=== PATIENT | female | born 1985 | race Caucasian/White ===

== ENCOUNTER 2020-07-27 11:31 | Inpatient (IN) ==
[2020-07-27] MEDS ORDERED: RINGER'S SOLUTION,LACTATED 1,000 ML IV PRN (11:58)
[2020-07-27] MEDS ORDERED: CITRIC ACID/SODIUM CITRATE 60 ML BTL PO PRN (11:58)
[2020-07-27] MEDS ORDERED: BUPIVACAINE HCL 50 ML VIAL IJ ONE (14:37)
[2020-07-27] MEDS ORDERED: BUPIVACAINE HCL/EPINEPHRINE 50 ML VIAL ONE (14:42)
--- NOTE | 2020-07-27 15:42 | ANES ---
Anesthesia Pre Procedure Eval Vitals/Labs: Last Vital Signs Temp 36.9 C 07/27/20 15:28 Pulse 80 07/27/20 15:28 Resp 16 07/27/20 15:28 BP 127/65 07/27/20 15:28 Pulse Ox 97 07/27/20 15:28 HOME MEDICATIONS acetaminophen 500 mg tablet 500 mg PO Q6H PRN 03/30/20 [Last Taken Unknown] albuterol sulfate 90 mcg/actuation aerosol inhaler 2 inh IH QID PRN 03/30/20 [Last Taken Unknown] hydroxyzine HCl 25 mg tablet 25 mg PO Q4H #30 tab 03/30/20 [Last Taken Unknown] levetiracetam 500 mg tablet 500 mg PO BID 03/30/20 [Last Taken Unknown] ascorbic acid (vitamin C) 500 mg tablet 500 mg PO DAILY 05/04/20 [Last Taken Unknown] ferrous sulfate 325 mg (65 mg iron) tablet,delayed release 325 mg PO DAILY 05/04/20 [Last Taken Unknown] folic acid 1 mg tablet 1 mg PO DAILY 05/04/20 [Last Taken Unknown] calcium carbonate 500 mg calcium (1,250 mg) tablet 1,000 mg PO Q4H PRN tab 06/29/20 [Last Taken Unknown] Vits96/Iron Fum/Folic [ S] 1 tab PO DAILY 07/27/20 [Last Taken Unknown] Allergies/Adverse Reactions: Allergies Allergy/AdvReac Type Severity Reaction Status Date / Time Penicillins Allergy Unknown Verified 07/20/20 10:10 promethazine [From Phenergan] AdvReac Intermediate Verified 07/20/20 10:10 - Planned Procedure Planned Procedure: Section with posible abdominal scar malcolm Medication List Reviewed:: Yes Allergies Verified: Yes Medical History (Last Reviewed 07/27/20 @ 15:39 by Jackson Zarate CRNA) Obesity, morbid, BMI 40.0-49.9 (Chronic) Oligohydramnios (Acute) 4.12cm on 07/27/20. Anxiety (Chronic) ADHD (attention deficit hyperactivity disorder) (Chronic) No meds Advanced maternal age (AMA) in (Chronic) Asthma (Chronic) Bipolar disorder with depression (Chronic) No meds since Late care (Acute) 21 weeks Seizure disorder (Chronic) Last dec. Current smoker (Resolved) Tetrahydrocannabinol (THC) use disorder, mild, abuse (Resolved) Anemia Onset Date: ~03/30/20 ADHD Onset Date: Unknown dx as a child Anxiety Onset Date: Unknown dx a a teen Asthma Onset Date: Unknown dx as a child Bipolar affect, depressed Onset Date: ~04/28/09 Seizures Onset Date: ~04/28/16 Anemia affecting Onset Date: ~2005 Polyhydramnios Onset Date: ~2006 Surgical History (Last Reviewed 07/27/20 @ 15:39 by Jackson Zarate CRNA) Previous section (Chronic) 2006 [facility] H/O section Onset Date: ~01/30/07 H/O myringotomy Onset Date: Unknown as a child Hx of tonsillectomy Onset Date: Unknown as a child Family History (Last Reviewed 07/27/20 @ 15:40 by Jackson Zarate CRNA) Mother Cancer cervical Acute Crohn's disease Bipolar disorder Hepatitis C Father COPD (chronic obstructive pulmonary disease) - Family Anesthesia History Family History:: no untoward family reactions to anesthesia, no familial bleeding tendencies, no family history of clotting disorders, no family history of premature - Airway/Neck/Teeth Within Normal Limits:: Yes Teeth Condition: missing - a few Neck Exam: full range of motion Mallampatti Score: 2 Thyromental (T-M) distance: > 6 cm Mandibulo Hyoid distance: > 3 cm - Respiratory Respiratory History: asthma Respiratory Physical: lungs clear Sleep Apnea currently treated: No Sleep Apnea by current assessment: No - Cardiovascular Tolerate Activity: Fair Heart Sounds: S1 & S2, Regular - Gastrointestinal NPO since: 0800 food, 1000 cream soda - Anesthesia Assessment and Plan ASA Class: PS, III Anesthesia Type Plan: Block - Bilateral TAP block for post op pain relief, Spinal
[2020-07-27] MEDS ORDERED: ceFAZolin SODIUM 1 GM VIAL ONE (16:25)
[2020-07-27] MEDS ORDERED: Oxytocin/Ringers Lactate 20 UNITS/1,000 ML BAG IV ONE (17:21)
[2020-07-27] MEDS ORDERED: ONDANSETRON HCL/PF 2 MG/ML VIAL IV PRN (18:28)
[2020-07-27] MEDS ORDERED: SENNOSIDES 8.6 MG TABLET PO PRN (18:28)
[2020-07-27] MEDS ORDERED: BISACODYL 10 MG SUPP.RECT RC PRN (18:28)
[2020-07-27] MEDS ORDERED: SIMETHICONE 80 MG TAB.CHEW PO PRN (18:28)
[2020-07-27] MEDS ORDERED: HYDROcodone/ACETAMINOPHEN 1 EACH TABLET PO PRN (18:28)
--- NOTE | 2020-07-27 18:42 | OR ---
Operative Report - Dictated Report Narrative: Indication: 35-year-old 4 para 1-0-2-1 admitted at 38 weeks for repeat low transverse section due to oligohydramnios. status: Planned Pre Operative Diagnosis: 38-week intrauterine . Prior section. Advanced maternal age. Oligohydramnios. Late care. Morbid obesity. Marijuana use in first trimester. Smoker. Post Operative Diagnosis: Same. Procedure: Repeat low transverse section. Surgeon: Tyler Jay DO Insurance And Benefits Clerk: OR Staff Anesthesia: Spinal, TAP block Estimated Blood Loss: 600 mL Urine Output: 100 mL clear urine Fluids Replacement: 1100 mL of crystalloid Drains: Fletcher to gravity Surgical Complications: None Specimens: Placenta to pathology Findings: Female born at 1712 on 07/27/2020 with Apgars 9 and 9, weighing 3416 g in cephalic presentation. Omental adhesions to anterior uterine fundus and inferior surface of left anterior abdominal wall. Rectus diathesis. Normal uterus, tubes, ovaries Technique: The patient was taken to the operating room and placed in dorsal supine position with a left lateral tilt. After adequate spinal anesthesia, fletcher catheter inserted, SCDs placed, and 2 g of Ancef given preoperatively, the abdominal cavity was entered using sharp and blunt dissection. Two rolled laps were placed in the pericolic gutters on either side of the uterus. A transverse incision was made in the lower uterine segment and extended laterally and upward ly with digital traction. Clear fluid was noted upon amniotomy. The was delivered easily, warmed and dried. After approximately 45 seconds, the cord was clamped and cut and was handed off to awaiting digital composer. The placenta was allowed to deliver spontaneously. The uterus was cleared of clot and debris. Uterine incision was closed with 0 Vicryl using a running stitch. A second imbricating layer was placed. Excellent hemostasis was noted. The rolled laps were removed from the abdominal cavitiy. Omental adhesions to the uterine serosa and peritoneal surface of the inferior anterior abdominal wall were excised using cut cautery. A small piece of Surgicel was placed over the serosa of the anterior uterine wall where adhesions were removed in an attempt to prevent further reattachment of adhesions. The peritoneum was closed with a running 3-0 Monocryl. The same suture was used to approximate the rectus and pyramidalis muscles. Using 0 Vicryl, a [id number]-lk-qbuad stitch was placed in the fascia of the rectus muscle just below the umbilicus to correct a partial rectus diathesis. The fascia of the rectus abdominis muscle was closed with a running 0 Vicryl. The subcutaneous layer was closed with a running 3-0 Monocryl. The same suture was used to approximate the subdermal layer. The skin was closed with a running 4-0 Monocryl and Dermabond. Sponge, lap, needle, and instrument count were correct x 2. Disposition: To post anesthesia care unit in good condition History for MU History for MU Definition: * The number of deliveries resulting in a live the patient experienced prior to current hospitalization * The previous delivery of live twins or any live multiple gestation is considered one live event. *If primagravida or nulliparous is documented select zero for the number of previous live births. Live Events: Live Events: 1
--- NOTE | 2020-07-27 18:45 | ANES ---
Post Anesthesia Discharge - Transfer of Care Transfer of Care handoff given to nurse: Yes - Discharge from PACU Discharge from PACU when meets criteria: Yes - Awake and comfortable
--- NOTE | 2020-07-27 18:48 | ANES ---
Anesthesia Procedure Note Procedure Note: ANESTHESIA PROCEDURE NOTE Date of Procedure: 07/27/2020 Time of procedure: 1830. Performed by: HECTOR Yost CRNA, MSN Tapper Supervisor: Lauren Garcia RN. Preprocedure diagnosis: Post section pain. Post procedure diagnosis: Same. Procedure: Bilateral TAP block Indications: Post section pain relief. Findings: See below. Details of the procedure: The patient was brought to PACU and placed in the supine position. The patient was prepped with chlorhexidine and using u ltrasound guidance the 3 abdominal muscular planes were identified and lidocaine 1% was infiltrated to the skin of the intended injection site. Under ultrasound guidance the the internal oblique and transverse this abdominis muscle layers were approached with visualization of a 4 inch block needle until the tip of the needle rested in the plane between the muscles. 25 mL bupivacaine 0.5% with 1-200,000 epinephrine was injected and the procedure was repeated on the other side. Please see radiology/ultrasound report for details and images of the procedure. EBL: 0 Fluids: N/A. Specimen: N/A. Post procedure condition: The patient tolerated the procedure well. No complications were noted. Thank you for this consultation. Jackson Zarate CRNA, ARNP, MSN
[2020-07-27] MEDS: IBUPROFEN 800 MG TABLET PO PRN (19:22)
[2020-07-27] MEDS: oxyCODONE HCL/ACETAMINOPHEN 1 TAB TABLET PO PRN (19:23)
[2020-07-27 20:20] LABS: Cocaine Ur Negative (NEGATIVE); Urine Barbiturate Negative (NEGATIVE); Urine Benzodiazepines Negative (NEGATIVE); Urine Opiates Negative (NEGATIVE); Urine PCP Negative (NEGATIVE); Urine THC Negative (NEGATIVE)
[2020-07-27] MEDS: DOCUSATE SODIUM 100 MG CAPSULE PO SCH (21:17)
[2020-07-28] MEDS: oxyCODONE HCL/ACETAMINOPHEN 1 TAB TABLET PO PRN ×6 (01:49→23:43)
[2020-07-28] MEDS: IBUPROFEN 800 MG TABLET PO PRN ×3 (02:32→15:57)
[2020-07-28] MEDS: ENOXAPARIN SODIUM 40 MG/0.4 ML SYRG SC SCH (05:13)
[2020-07-28] MEDS ORDERED: ceFAZolin SODIUM 1 GM VIAL IV PRN (06:00)
--- NOTE | 2020-07-28 08:25 | ANES ---
Post Anesthesia Assessment - Vital Signs Vitals: Last Vital Signs Temp 36.4 C 07/27/20 18:50 Pulse 95 07/28/20 02:35 Resp 16 07/28/20 02:35 BP 108/56 07/28/20 02:35 Pulse Ox 96 07/28/20 02:35 Airway Patency: Normal - Mental Status Level Of Consciousness: Awake, Alert, Appropriate - Pain Level Pain Score: 8 - Comfortable through night but increasing this am. - N/V Assessment Nausea/Vomiting Presence: None Dehydration:: No
[2020-07-28] MEDS: DOCUSATE SODIUM 100 MG CAPSULE PO SCH ×2 (09:58→20:27)
--- NOTE | 2020-07-28 14:57 | PN ---
Subjective - Date and Time Seen Date: 07/28/20 Time: 14:57 Objective - Vitals Vitals: Last Vital Signs Temp 36.2 C 07/28/20 09:00 Pulse 88 07/28/20 09:00 Resp 16 07/28/20 09:00 BP 105/58 07/28/20 09:00 Pulse Ox 97 07/28/20 09:00 Patient denies complaints. Tolerating regular diet. Ambulating without difficulty. Pain well controlled. Lochia wnl. Abdomen - soft, appropriately tender Incision -clean, dry, intact uterus - firm, at umbilicus -1 No calf tenderness Impression: Post op day #1 s/p repeat section. Plan: Continue routine post-operative/ care Cauti Physician Documentation - Urinary Catheter Management Urethral (Castillo) Date of Insertion: 07/27/20 Time of Insertion: 16:55
[2020-07-28] MEDS ORDERED: hydrOXYzine HCL 25 MG TABLET PO PRN (15:12)
[2020-07-28] MEDS ORDERED: ALBUTEROL SULFATE 2.5 MG/0.5 ML VIAL.NEB IH PRN (15:12)
[2020-07-28] MEDS ORDERED: CALCIUM CARBONATE 500 MG TAB.CHEW PO PRN (15:12)
[2020-07-28] MEDS: FERROUS SULFATE 325 MG TABLET PO SCH (20:27)
[2020-07-28] MEDS: levETIRAcetam 500 MG TABLET PO SCH (20:28)
[2020-07-29] MEDS: IBUPROFEN 800 MG TABLET PO PRN ×3 (02:46→19:07)
[2020-07-29] MEDS: ENOXAPARIN SODIUM 40 MG/0.4 ML SYRG SC SCH (04:39)
[2020-07-29] MEDS: oxyCODONE HCL/ACETAMINOPHEN 1 TAB TABLET PO PRN ×3 (04:39→19:06)
--- NOTE | 2020-07-29 09:36 | PN ---
Subjective - Date and Time Seen Date: 07/29/20 Time: 09:28 Objective - Vitals Vitals: Last Vital Signs Temp 36.3 C 07/29/20 07:00 Pulse 68 07/29/20 07:00 Resp 18 07/29/20 07:00 BP 109/54 07/29/20 07:00 Pulse Ox 97 07/29/20 07:00 Patient denies complaints. Ambulating well. Tolerating regular diet. Pain well controlled. Rest feeding well. Lochia wnl. Abdomen - soft, appropriately tender Incision -clean, dry, intact uterus - firm, at umbilicus -2 No calf tenderness Impression: Post op day #2 s/p repeat section. Plan: Continue routine post-operative/ care Cauti Physician Documentation - Urinary Catheter Management Urethral (Castillo) Date of Insertion: 07/27/20 Time of Insertion: 16:55
[2020-07-29] MEDS: FERROUS SULFATE 325 MG TABLET PO SCH ×2 (09:39→20:57)
[2020-07-29] MEDS: PRENATAL VITS96/IRON FUM/FOLIC 1 TAB TABLET PO SCH (09:40)
[2020-07-29] MEDS: ASCORBIC ACID 500 MG TABLET PO SCH (09:40)
[2020-07-29] MEDS: DOCUSATE SODIUM 100 MG CAPSULE PO SCH ×2 (09:40→20:58)
[2020-07-29] MEDS: levETIRAcetam 500 MG TABLET PO SCH ×2 (09:42→20:58)
[2020-07-30] MEDS: oxyCODONE HCL/ACETAMINOPHEN 1 TAB TABLET PO PRN (01:10)
[2020-07-30] MEDS: IBUPROFEN 800 MG TABLET PO PRN ×2 (01:10→10:29)
[2020-07-30] MEDS: ENOXAPARIN SODIUM 40 MG/0.4 ML SYRG SC SCH (04:30)
[2020-07-30 07:25] VITALS: BP 120/71
[2020-07-30] MEDS: PRENATAL VITS96/IRON FUM/FOLIC 1 TAB TABLET PO SCH (10:29)
[2020-07-30] MEDS: levETIRAcetam 500 MG TABLET PO SCH (10:29)
[2020-07-30] MEDS: DOCUSATE SODIUM 100 MG CAPSULE PO SCH (10:29)
[2020-07-30] MEDS: FERROUS SULFATE 325 MG TABLET PO SCH (10:30)
[2020-07-30] MEDS: ASCORBIC ACID 500 MG TABLET PO SCH (10:31)
--- NOTE | 2020-07-30 10:45 | PN ---
Subjective - Date and Time Seen Date: 07/30/20 Time: 10:43 Objective - Vitals Vitals: Last Vital Signs Temp 36.2 C 07/30/20 07:21 Pulse 76 07/30/20 07:21 Resp 16 07/30/20 07:21 BP 120/71 07/30/20 07:21 Pulse Ox 100 07/30/20 07:21 Patient denies complaints. Ambulating without difficulty. Tolerating regular diet. Pain well controlled. Lochia wnl. Abdomen - soft, appropriately tender Incision -clean, dry, intact uterus - firm, at umbilicus -3 No calf tenderness Impression: Post op day #3 s/p repeat section. Plan: Routine discharge instructions Cauti Physician Documentation - Urinary Catheter Management Urethral (Castillo) Date of Insertion: 07/27/20 Time of Insertion: 16:55 Assessment/Plan - Problems/Diagnosis (1) S/P repeat low transverse Problem: Acute (2) Late care Problem: Acute (3) Normal breast feeding Problem: Acute (4) Oligohydramnios Problem: Acute Qualifiers: Fetus number: single or unspecified fetus Trimester: third trimester Qualified Code(s): O41.03X0 - Oligohydramnios, third trimester, not applicable or unspecified (5) ADHD (attention deficit hyperactivity disorder) Problem: Chronic Qualifiers: Attention deficit-hyperactivity disorder type: unspecified Qualified Code(s): F90.9 - Attention-deficit hyperactivity disorder, unspecified type (6) Advanced maternal age (AMA) in Problem: Chronic (7) Anxiety Problem: Chronic (8) Asthma Problem: Chronic Qualifiers: Asthma severity: mild Asthma persistence: intermittent Asthma complic ation type: uncomplicated Qualified Code(s): J45.20 - Mild intermittent asthma, uncomplicated
--- NOTE | 2020-07-30 10:49 | DS ---
OB Discharge Summary (1) S/P repeat low transverse Status: Acute (2) Late care Status: Acute (3) Normal breast feeding Status: Acute (4) Oligohydramnios Status: Resolved Qualifiers: Fetus number: single or unspecified fetus Trimester: third trimester Qualified Code(s): O41.03X0 - Oligohydramnios, third trimester, not applicable or unspecified (5) ADHD (attention deficit hyperactivity disorder) Status: Chronic Qualifiers: Attention deficit-hyperactivity disorder type: unspecified Qualified Code(s): F90.9 - Attention-deficit hyperactivity disorder, unspecified type (6) Advanced maternal age (AMA) in Status: Chronic (7) Anxiety Status: Chronic (8) Asthma Status: Chronic Qualifiers: Asthma severity: mild Asthma persistence: intermittent Asthma complication type: uncomplicated Qualified Code(s): J45.20 - Mild intermittent asthma, uncomplicated Delivery Date: 07/[birth year] Delivery Time: 17:12 :: 3 Para:: 2 Gestational weeks:: 38 Gestational days:: 0 Intrapartum Procedures: Secondary Section, Delivery-Low Transverse Discharge Diagnosis: Term -Delivered - Discharge Information Date of Discharge: 07/30/20 Hospital Course: 35-year-old 3 now para 2 admitted at 38 weeks for repeat low transverse section due to oligohydramnios. and postoperative course were uncomplicated. She was discharged on postop day #3 with routine discharge instructions. Discharge Location: Home Disposition: Home self-care Condition: Good Referrals: Tania Peacock TEACHING PASTOR [Primary Care Provider] - Activity on Discharge:: Activity as tolerated, Pelvic Rest, No lifting Discharge Diet: General/regular food Additional Patient Instructions (free text): Mary you have a 2 week follow-up appointment with Dr. Jay on FridayAugust 08 at 10:15 and a 6 week follow-up on September 14 at 1:15. Continue to take your vitamins one daily. Rest when your baby rests. Drink plenty of fluids, eat lots of fruits and vegetables and lean meat. Nurse every 2-3 hours and on demand , when she is giving feeding cues. Jurgen has a follow-up appointment with Pamela Richard on FridayJuly 31 at 12:45. Johnna has passed her hearing screen in both ears, and her CHD, her Metabolic Screen has been drawn. Always use safe sleeping practices, always place Johnna on her back to sleep, in her own bed, no co-sleeping, pillows, bumper pad, stuffed animals in sleeping area. Her weight at was 7# 8.4 oz. Today's weight is 7 # 2.0 oz Her blood type is A positive. Her TCB today is 1.3 Thank you for choosing [facility] for your special event. If you have any questions, or concerns please call the [facility] [phone], [facility] [phone] or [facility] [phone]. Prescriptions (Any new or edited meds): Ibuprofen [Motrin] 200 - 800 mg PO Q6H PRN #100 tab PRN Reason: Pain oxyCODONE HCL/ACETAMINOPHEN [Percocet 5 MG/325 MG] 1 tab PO Q4H PRN #10 tab PRN Reason: Moderate Pain Transmission Status: Received by [id number] Complete Home Medications List: Complete Home Medication List: albuterol sulfate 90 mcg/actuation aerosol inhaler 2 inh IH QID PRN 03/30/20 hydroxyzine HCl 25 mg tablet 25 mg PO Q4H #30 tab 03/30/20 levetiracetam 500 mg tablet 500 mg PO BID 03/30/20 ascorbic acid (vitamin C) 500 mg tablet 500 mg PO DAILY 05/04/20 ferrous sulfate 325 mg (65 mg iron) tablet,delayed release 325 mg PO BID 05/04/20 folic acid 1 mg tablet 1 mg PO DAILY 05/04/20 calcium carbonate 500 mg calcium (1,250 mg) tablet 1,000 mg PO Q4H PRN tab 06/29/20 Vits96/Iron Fum/Folic [ S] 1 tab PO DAILY 07/27/20 Ibuprofen [Motrin] 200 - 800 mg PO Q6H PRN #100 tab 07/28/20 oxyCODONE HCL/ACETAMINOPHEN [Percocet 5 MG/325 MG] 1 tab PO Q4H PRN #10 tab 07/28/20 - Plan Discharge to:: Home Follow up in office in:: 2 weeks - Information Weight (Grams): 3,416 Sex: Female Score 1 min: 9 Score 5 min: 9 Complications: Other Other Complications: Hemangioma on left hip.
== END 2020-07-30 12:45 | disposition home or self-care (01) | DRG 787 ==
LOC: OB 11:31
PROVIDERS: ADMIT Obstetrics & Gynecology; ATTEND Obstetrics & Gynecology
DX: F90.9 Attention-deficit hyperactivity disorder, unspecified type; J45.909 Unspecified asthma, uncomplicated; O34.211 Maternal care for low transverse scar from previous cesarean delivery; Z37.0 Single live birth; O99.321 Drug use complicating pregnancy, first trimester; E66.01 Morbid (severe) obesity due to excess calories; O99.214 Obesity complicating childbirth; Z3A.38 38 weeks gestation of pregnancy; O41.03X0 Oligohydramnios, third trimester, not applicable or unspecified; F12.90 Cannabis use, unspecified, uncomplicated; F41.9 Anxiety disorder, unspecified; O99.334 Smoking (tobacco) complicating childbirth